=== PATIENT | male | born 1990 | race Hispanic/Latino ===

== ENCOUNTER 2019-04-18 21:21 | Emergency (ER) | payer BC ==
[~2019-04-18] VITALS: Ht 170.2 cm; Wt 81.6 kg
--- NOTE | 2019-04-18 22:52 | Diagnostic Imaging Report ---
CT Pelvis Without IV Contrast INDICATION: Fall ^right pelvic, back pain ^[id number] ^[id number] TECHNIQUE: 2.5 mm collimation axial images obtained from the iliac crests to the symphysis pubis. No intravenous contrast was administered. Dose reduction techniques used: Automated exposure control, adjustment of the mAs and/or kVp according to patient size, standardized low-dose protocol, and/or iterative reconstruction technique. RADIATION DOSE: Total DLP: None mGy*cm Estimated effective dose: (DLP x 0.015 x size factor) mSv CTDIvol has been reviewed. It is below the limits set by the Radiation Protocol Committee (RPC). COMPARISON: None. Findings: Bowel: Small Bowel: Visualized portions are normal in diameter with normal wall thickness. Large Bowel: Visualized portions are normal in diameter with normal wall thickness. Appendix: Normal. Bladder: Well distended and normal. Lymph Nodes: No lymphadenopathy. No free fluid or fluid collection. Bones: No diastases of the sacroiliac joints or pubic symphysis. The hips are intact and normally aligned. No evidence of fracture. A subcentimeter bone island is in the roof of the right acetabulum. Visualized portions of the lower lumbar spine are normal. Soft tissues: Multiple deep subcutaneous contusions of the posterior right pelvis. IMPRESSION: Subcutaneous contusions of the posterior right pelvis. No osseous injury. Signed by: Dr. Julio Piper MD on 04/18/2019 10:50 PM
--- NOTE | 2019-04-18 22:56 | Diagnostic Imaging Report ---
EXAMINATION: Head CT without contrast. HISTORY:Status post fall. COMPARISON:None. TECHNIQUE: Multidetector axial images were obtained from the foramen magnum to the vertex without contrast. The images were reconstructed using brain and bone algorithms. Thin section brain images were reformatted into coronal and sagittal planes. Dose modulation, iterative reconstruction, and/or weight based adjustment of the mA/kV was utilized to reduce the radiation dose to as low as reasonably achievable. Intravenous contrast: None IMAGE QUALITY: Acceptable. FINDINGS: Skull/scalp: No lytic or blastic. lesions. No surgical changes. Parenchyma: No abnormal density. No acute hemorrhage, mass or acute major vascular territorial infarct. Arteries: No density suggestive of thrombosis. Dural sinuses: No abnormal density suggestive of thrombosis. Ventricles: No hydrocephalus or displacement. Extra-axial spaces: No abnormal density. Brain volume: Normal for age. Craniocervical junction: No mass, Chiari malformation, or basilar invagination. Sella: No mass. Paranasal/mastoid sinuses: Imaged portions unremarkable. IMPRESSION: No intracranial abnormality. Signed by: Dr. Roxana Campbell M.D. on 04/18/2019 10:54 PM
--- NOTE | 2019-04-18 23:01 | NUR ---
CT RESULTS PLACED ON CHART.
[2019-04-18 23:45] VITALS: BP 148/86
== END 2019-04-18 23:43 | disposition home or self-care (01) ==
LOC: FSED 21:21
DX: S30.0XXA Contusion of lower back and pelvis, initial encounter (principal); S30.1XXA Contusion of abdominal wall, initial encounter; S09.90XA Unspecified injury of head, initial encounter; M54.2 Cervicalgia; M25.551 Pain in right hip; W10.8XXA Fall (on) (from) other stairs and steps, initial encounter; Y92.008 Other place in unspecified non-institutional (private) residence as the place of occurrence of the external cause
CPT/HCPCS: 70450; 72192; 99283